=== PATIENT | female | born 1995 | race Caucasian/White ===

== ENCOUNTER 2023-09-05 10:41 | Day surgery (SDC) | payer OTHER ==
[2023-08-31 16:04] VITALS: BMI 29.8
[~2023-09-05 10:41] MED LIST: HYDROmorphone 0.5 MG/0.5 ML SYRINGE IVP PRN; LIDOCAINE 1% (10MG/ML) FOR IV START INTRADERMA PRN; Pre Op ABX Message 1 EACH MISC MISCELLANE ONE
[2023-09-05 11:03] VITALS: TEMP 97.8
[2023-09-05] MEDS: LACTATED RINGERS 1,000 ML IV SCH (11:20)
[2023-09-05] MEDS: IV FLUID CONTINUATION 1,000 ML IV ONE (11:20)
[2023-09-05] MEDS: ONDANSETRON 4 MG/2 ML VIAL IVP ONE (11:22)
[2023-09-05] MEDS ORDERED: fentaNYL (PF) 50 MCG/ML 2 ML AMP ONE (12:48)
[2023-09-05] MEDS ORDERED: MIDAZOLAM 2 MG/2 ML VIAL ONE (12:48)
[2023-09-05] MEDS ORDERED: PROPOFOL 10 MG/ML 20 ML VIAL IV ONE (12:48)
[2023-09-05] MEDS: BUPIVACAINE (PF) 0.5% 30 ML VIAL SQ ONE (13:02)
[2023-09-05] MEDS: LIDOCAINE 1% INJ 10MG/ML (20 ML MDV) SQ ONE (13:02)
[2023-09-05 13:26] VITALS: RESP 16
[2023-09-05 13:47] VITALS: BP 99/59; PULSE 62
--- NOTE | 2023-09-05 18:05 | P.OP ---
Date of Procedure: 09/05/23 Preoperative Diagnosis: Right carpal tunnel syndrome Postoperative Diagnosis: same Procedure(s) Performed: right endoscopic carpal tunnel release Anesthesia: MAC, local Surgeon: Giselle Beauchamp Estimated Blood Loss (ml): 0 Pathology: none sent Condition: stable Disposition: PACU Indications for Procedure: The patient has numbness and tingling in the median nerve distribution of her right hand. It is worse at night. EMG confirms carpal tunnel syndrome. Description of Procedure: The patient, operative extremity, and procedure were identified in the preoperative holding area. After informed consent was obtained, the patient was then brought back to the operating room where a local block was performed with lidocaine with epinephrine and 0.5% marcaine. The extremity was then prepped and draped in normal sterile fashion with a tourniquet on the patients brachium. A formal timeout was performed and the tourniquet was inflated to 250mmHg. A transverse incision was made just ulnar to the palmaris longus tendon in the proximal wrist crease. Dissection was taken down to the forearm fascia. This is released proximally about a centimeter. The incision was utilized to access the carpal tunnel with serial dilators followed by the cannula. When the arthroscope was inserted, the transverse carpal ligament was well isolated without any aberrant soft tissue visible. Under direct visualization, the cutting tool was used to transect the transverse carpal ligament in its entirety. The release was confirmed visually with the arthroscope and also by palpation with the dilator tool. Tourniquet was then let down, hemostasis was achieved and the wound was closed with skin glue and steristrips. Wound was dressed with telfa and tegaderm. Patient was aroused by the anesthesia team and brought back to PACU in stable condition.
== END 2023-09-05 13:57 | disposition home or self-care (01) ==
LOC: OR 10:41
PROVIDERS: ATTEND Orthopaedic Surgery Hand Surgery
DX: G40.89 Other seizures (principal); F17.200 Nicotine dependence, unspecified, uncomplicated; F41.9 Anxiety disorder, unspecified; Z79.899 Other long term (current) drug therapy
CPT/HCPCS: 81025; 29848; J2250; J2405; J2001; J3010; J2704; J0665